=== PATIENT | male | born 1965 | race Caucasian/White ===

== ENCOUNTER → 2022-07-12 08:56 | Outpatient (CLI) | payer OTHER, SELFPAY ==
--- NOTE | 2022-07-12 09:02 | DI.RAD.S_ITS ---
PROCEDURE: XR LUMBAR SPINE 2-3V INDICATIONS: neck and low back pain TECHNIQUE: 3 views of the lumbar spine were acquired. COMPARISON: [facility], MR, MR LUMBAR SPINE WITHOUT CONTRAST, 06/24/2021, 16:38. FINDINGS: Bones: 5 [id number] vertebrae are present. There is 7 mm retrolisthesis of L1 on L2 and 1 cm retrolisthesis of L2 on L3, 6 mm retrolisthesis of L3 on L4, and 1.1 cm anterolisthesis of L5 on S1. Degenerative endplate changes are noted throughout lumbar spine most notably at L1-2 level. No vertebral body compression fractures. No suspicious bony lesions. Soft tissues: Overlying bowel gas pattern is normal. No suspicious soft tissue calcifications. IMPRESSION: Grade 1 spondylolisthesis throughout lumbar spine as described above. No acute compression fracture. Degenerative disc disease throughout lumbar spine. Dictated by: Darryl Nix M.D. on 07/12/2022 at 9:46 Approved by: Darryl Nix M.D. on 07/12/2022 at 10:08
--- NOTE | 2022-07-12 09:02 | DI.RAD.S_ITS ---
PROCEDURE: XR CERVICAL SPINE 2V OR 3V INDICATIONS: neck and low back pain TECHNIQUE: 4 views of the cervical spine were acquired. COMPARISON: None. FINDINGS: Bones: No fractures or dislocations to the C7-T1 level. Loss of disc height and degenerative endplate changes are noted at C5-6 and C6-7 levels. The lateral masses of C1 appear intact on the odontoid view. No suspicious bony lesions. Soft tissues: No prevertebral soft tissue swelling. IMPRESSION: Degenerative disc disease in lower cervical spine. No fracture or dislocation. Dictated by: Darryl Nix M.D. on 07/12/2022 at 9:46 Approved by: Darryl Nix M.D. on 07/12/2022 at 9:46
== END ==
LOC: RAD 08:59
PROVIDERS: Referring Provider Internal Medicine Cardiovascular Disease; Visit Provider Internal Medicine Cardiovascular Disease
DX: M50.322 Other cervical disc degeneration at C5-C6 level (principal); M51.36 Other intervertebral disc degeneration, lumbar region; M43.16 Spondylolisthesis, lumbar region; M43.17 Spondylolisthesis, lumbosacral region; M54.50 Low back pain, unspecified
CPT/HCPCS: 72040; 72100